=== PATIENT | male | born 1985 | race African-American/Black ===

== ENCOUNTER 2018-03-12 11:04 | Emergency (ER) | payer OTHER ==
[~2018-03-12] VITALS: Ht 162.6 cm; Wt 59.0 kg
[2018-03-12 14:45] VITALS: BP 119/72; TEMP 101.7
== END 2018-03-12 15:45 | disposition home or self-care (01) ==
LOC: ED 11:04
PROC: 2W3RX1Z Immobilization of Left Lower Leg using Splint (ICD-10-PCS; principal; 2018-03-12)
DX: S82.892A Other fracture of left lower leg, initial encounter for closed fracture (principal); W13.2XXA Fall from, out of or through roof, initial encounter
CPT/HCPCS: 96374; 96376; 99284; J1885; J2270

== ENCOUNTER 2018-05-03 03:20 | Emergency (ER) | payer OTHER ==
[~2018-05-03] VITALS: Ht 162.6 cm; Wt 59.0 kg
[2018-05-03] MEDS ORDERED: ABILIFY20 MG PO (03:50)
[2018-05-03] MEDS ORDERED: CITALOPRAM20 MG PO (03:51)
[2018-05-03 04:12] LABS: PLATELET COUNT 413 K/uL (142-355)
[2018-05-03 04:23] LABS: POTASSIUM 4.2 mmol/L (3.6-5.2)
[2018-05-03 06:40] VITALS: BP 130/87; TEMP 98.4
== END 2018-05-04 11:02 | disposition home or self-care (01) ==
LOC: ED 03:22
PROVIDERS: Emergency Medicine
DX: F20.89 Other schizophrenia (principal); R45.851 Suicidal ideations
CPT/HCPCS: 36415; 80053; 80307; 80320; 80329; 81000; 85027; 93005; 96372; 99285; J1200; J1630; J2060

== ENCOUNTER 2018-06-22 22:07 | Emergency (ER) | payer OTHER ==
[~2018-06-22] VITALS: Ht 162.6 cm; Wt 74.4 kg
[~2018-06-22 22:07] MED LIST: ABILIFY20 MG PO; CITALOPRAM20 MG PO
[2018-06-22 23:00] LABS: PLATELET COUNT 349 K/uL (142-355)
[2018-06-22 23:13] LABS: POTASSIUM 3.5 mmol/L (3.6-5.2)
[2018-06-23 00:28] VITALS: BP 1121/78; TEMP 98.1
== END 2018-06-23 00:29 | disposition home or self-care (01) ==
LOC: ED 22:07
DX: T88.7XXA Unspecified adverse effect of drug or medicament, initial encounter (principal); T43.595A Adverse effect of other antipsychotics and neuroleptics, initial encounter
CPT/HCPCS: 36415; 80053; 80307; 80320; 81000; 85027; 99283